=== PATIENT | male | born 1980 | race African-American/Black ===

== ENCOUNTER 2022-06-09 18:58 | Emergency (ER) | payer OTHER, SELFPAY ==
--- NOTE | ~2022-06-09 | XR_ITS ---
EXAMINATION: XR ankle LT min 3V, XR foot LT 2V CLINICAL INFORMATION: Reason for Exam posterior ankle pain COMPARISON: None. TECHNIQUE: Three views of the foot and 2 views of the ankle FINDINGS: No acute fracture or dislocation. Suspect subtle periarticular erosion along the medial aspect of the base of the first proximal phalanx with some overlying soft tissue swelling. Mild degenerative changes of the foot and ankle with Achilles tendon enthesopathy and degenerative spurring of the tibiotalar joint and dorsal midfoot. No tibiotalar talar joint effusion. XR/XR foot LT 2V IMPRESSION: 1. No acute fracture or dislocation. 2. Suspect subtle periarticular erosion along the medial aspect of the base of the first proximal phalanx with some overlying soft tissue swelling, which can be seen in the setting of gout if clinical history is appropriate. 3. Mild degenerative changes of the foot and ankle.
--- NOTE | ~2022-06-09 | XR_ITS ---
EXAMINATION: XR ankle LT min 3V, XR foot LT 2V CLINICAL INFORMATION: Reason for Exam posterior ankle pain COMPARISON: None. TECHNIQUE: Three views of the foot and 2 views of the ankle FINDINGS: No acute fracture or dislocation. Suspect subtle periarticular erosion along the medial aspect of the base of the first proximal phalanx with some overlying soft tissue swelling. Mild degenerative changes of the foot and ankle with Achilles tendon enthesopathy and degenerative spurring of the tibiotalar joint and dorsal midfoot. No tibiotalar talar joint effusion. XR/XR ankle LT min 3V IMPRESSION: 1. No acute fracture or dislocation. 2. Suspect subtle periarticular erosion along the medial aspect of the base of the first proximal phalanx with some overlying soft tissue swelling, which can be seen in the setting of gout if clinical history is appropriate. 3. Mild degenerative changes of the foot and ankle.
--- NOTE | ~2022-06-09 | US_ITS ---
EXAMINATION: ULTRASOUND ACHILLES TENDON, LEFT CLINICAL INFORMATION: Plain basketball and felt a pop in left ankle COMPARISON: None TECHNIQUE: High-frequency linear ultrasound transducer was used to examine the region of the left Achilles tendon. FINDINGS: Approximately 10 cm from the calcaneus, there is evidence of an Achilles tendon rupture with disruption of the tendon and a heterogeneous fluid collection. US/US extremity nonvascular IMPRESSION: Evidence of Achilles tendon rupture.
[2022-06-09 19:11] VITALS: BP 123/75; BP 123/82; PULSE 59; PULSE 64; RESP 15; TEMP 36.9; O2SAT 100; O2SAT 99; BMI 26.8
[2022-06-09 19:20] VITALS: BP 123/75; PULSE 59; RESP 15; TEMP 36.9; O2SAT 99
--- NOTE | 2022-06-09 19:27 | ED.LOWEXIN ---
HPI - Extremity Injury (Lower) General Chief Complaint: Extremity Injury, Lower Stated Complaint: felt pop in ankle Time Seen by Provider: 06/09/22 19:07 Source: patient Mode of arrival: ambulatory Limitations: no limitations History of Present Illness HPI Narrative: 42 yold male presents to the ED for left posterior ankle pain. patient states he was going for a layup and he felt a pop in his posterior ankle and he states fell to the ground. patient states he was informed no one pushed him to the ground. patient states not able to bear weight on foot. patient denies hitting head or loss of consciousness. Related Data Previous Rx's Medication Instructions Recorded naproxen 500 mg tablet 500 mg PO BID PRN pain 10 days #20 06/09/22 tabs oxycodone 5 mg tablet 5 mg PO TID PRN pain 3 days #9 tabs 06/09/22 Allergies Allergy/AdvReac Type Severity Reaction Status Date / Time No Known Allergies Allergy Verified 06/09/22 19:15 Review of Systems Review of Systems: left posteiror ankle pain Yes all other systems are reviewed and are negative [facility] Past Medical History Medical History (Updated 06/09/22 @ 22:39 by ZOHRA Ledbetter) ACL tear Social History Social History Smoked in Last 30 Days: No Use of substances other than those prescribed or required for medical reasons: No Advance Directives: Yes Advance Directives Information Provided: No Advance Directives on File: No Physical Exam Vital Signs: Vital Signs: Last Vital Signs Temp 98.4 F 06/09/22 19:20 Pulse 59 06/09/22 19:20 Resp 15 06/09/22 19:20 BP 123/75 06/09/22 19:20 Pulse Ox 99 06/09/22 19:20 O2 Del Method 06/09/22 19:20 BMI result Body Mass Index 26.8 Const: General: cooperative, healthy appearing, comfortable, no acute distress, well developed, alert, awake and Physically active Orientation/consciousness: oriented to person, oriented to place, oriented to time and patient oriented x3 HEENT: Head: Yes normal to inspection, Yes No palpable skull fracture present, Yes normocephalic, Yes atraumatic and No abrasion Eyes: General: appearance normal, both eyes and all related structures Neck: Neck: Yes normal visual inspection, Yes full ROM, Yes no lymphadenopathy, Yes no meningeal signs, Yes trachea midline, Yes supple, No anterior neck swelling and No tender Chest: Chest palpation & inspection: normal inspection of the chest and normal palpation of entire chest wall Resp: Effort & Inspection: normal respiratory effort and able to speak in complete sentences Auscultation: clear to auscultation bilaterally Cardio: Jugular venous distension: no JVD Heart sounds: S1 normal heart sound present and S2 normal heart sound present GI: Inspection: Yes normal to inspection and No abdominal wall ecchymosis Palpation (GI): Soft to palpation, not firm, nontender, no guarding and not rigid : General: No CVA tenderness and Yes no CVA tenderness Back/Spine/Pelvis: Back: no CVA tenderness, No CVA tenderness and No back tenderness Skin: General skin exam: no rashes or lesions noted and elasticity normal Neuro: General: oriented to person, oriented to place, oriented to time, patient oriented x3, tone normal, Normal light touch and pain sensation, no meningeal signs and CN's II-XI intact bilaterally Extrem: General: Yes normal to inspection and Yes full ROM Ankle/foot/toe images: 1. Positive for tenderness on palpation. Positive Guallpa test. Neuro/vascular exam intact. Motor exam limited due to pain Psych: Appearance: grossly normal, well kempt and not disheveled Course Course Course Narrative: administrative support technician was called to order MRI to check for his rupture and calf rupture. They spoke with Dr. Diaz and states not able to do the procedure. Will order x-ray and lower extremity ultrasound to check for calf rupture. Reevaluation(s) Reevaluation #1: Ultrasound shows Achilles tendon rupure. Patient placed in posterior splint and told to follow up with orthopedic surgeon Time: 22:37 Medications Administered Discontinued Medications Generic Name Dose Route Start Last Admin Trade Name Jacobq PRN Reason Stop Dose Admin Ibuprofen 800 mg 06/09/22 22:04 06/09/22 22:22 Ibuprofen 800 Mg Tablet PO 06/09/22 22:05 800 mg ONCE ONE Administration MDM - Extremity Injury (Lower) MDM Narrative Medical decision making narrative: Achilles tendon rupture Discharge Plan Discharge Clinical Impression: Achilles tendon rupture Patient Disposition: Home, Self-Care Instructions: Crutch Instructions (ED), Achilles Tendon Rupture (ED), Splint Care (ED), R.I.C.E. Treatment (ED) Additional Instructions: You will need follow-up with orthopedic surgeon. He will be discharged with pain medication. Do not recommend he return to work having or resuming sports activities. Return to the ED for worsening pain, bluish black discoloration of toes, redness, chest pain, shortness of breath, or any other concerning symptoms. Prescriptions: New naproxen 500 mg tablet 500 mg PO BID PRN (Reason: pain) 10 Days Qty: 20 0RF oxycodone 5 mg tablet 5 mg PO TID PRN (Reason: pain) 3 Days Qty: 9 0RF Rx Instructions: Partial Fill upon patient request. side effect is drowsiness. Do not take at work or while driving. [place]: [facility] [place] [facility] [place] Group] (Achilles tendon rupture) Stand Alone Forms: Work/School Release Interventions: ED Discharge Assessment Last Done: 06/09/22 22:50 Discharge Date/Time: 06/09/22 22:50 Print Language: Lithuanian
--- OUTSIDE RECORDS SUMMARY | 2022-06-09 20:22 | XMS_ITS | Continuity of Care Document ---
:1980 Author Organization [facility] Care Team Providers Name Role Phone [facility] Unavailable Unavailable Allergies, Adverse Reactions, Alerts Combined list of allergies from Department of Defense and Veterans Affairs facilities. It does not include entries that were removed or entered in error. Substance Category Reaction Severity Reaction Status Date Comments S ource type Reported No Known Drug Drug active DARIN Sa n Allergies allergy allergy 9 [facility] [place] [address] Immunizations Combined list of available immunizations from the Department of Defense and Veterans Affairs facilities. Immunization Series Date Administered Site Reaction Lot CVX Drug St atus Comments Source Given By Number Code Crtt Influenza, 1 08/06/ BO03425 150 Seqirus (SEQ) comp let Influenza DoD injectable, 2018 ed , quadrivalent, inject abl preservative e, free quadrival ent, preservat danyell free Encounters Combined list of: 1) Encounters from Department of Veterans Affairs facilities going back up to the last 18 months. 2) Encounters from the Department of Defense facilities going back up to 280 months. Location Location Encounter Encounter Reason Attending ADM [place] Stat us Disposition Source Details Type Number For Provider Date Date Visit OUTPATIENT [id number] MICHELLE, 10/16 Release d w/o DARIN Fontanez 4 BRILYN MIRNA [place]itations [place] [address]([facility], BMT) OUTPATIENT [id number] Notes STEPHON, 10/17 Release d w/o DARIN Fontanez 1 Entered JOCELINE Limitations Daljit io by: FERNANDO SZYMANSKI y ,JOCELINE Treatme FERNANDO nt [place], [place] [address](T ------- rainee ------- Health ------- [place], ------- [place] -- d) Strep Prophyl axsis OUTPATIENT [id number] Notes PARMJIT, 10/30 Released w/o DARIN Fontanez 7 Entered EUISUN NMN Limitations A ntonio by: Kathia Márquez Treatme Oct 2019 Facilit [address], [place] ------- [address](T ------- rainee ------- Health ------- Ryan, -- [place] [facility] [place] -DX 1. Cervica lgia Neck Pain DX 2. Muscle Spas Neck--F /U THS OUTPATIENT [id number] Initial CITLALI, 10/31 Release d w/o DARIN Fontanez 6 BMT TB JOYCE /2019 Limitations Ant [place] [address](O ccupati onal Med, Ryan) OUTPATIENT [id number] Margaret KAUFMANKARINA, 12/14 Release d w/o 81st 1 Waiver NICHOL Limitations Id dical Group[facility] Procedures Combined list of: 1) Procedures from Department of Veterans Affairs facilities going back up to the last 18 months, not all VA non-surgical procedures are included; 2) All procedures from the Department of Defense facilities. Procedure Procedure Type Code Date Perfomer Comments [facility] e Physician Physician 18880 Flex SZYMANSKI Supervised Supervised 9 JOCELINE FERNANDO Injection Injection Intramuscular Intramuscular Threshold Audiogram Threshold Audiogram 54640 Flex MARTINEZ (Pure Tone) (Pure Tone) 9 BRILYN MIRNA INJECTION, [facility] KETOROLAC 9 TROMETHAMINE, PER 15 MG THERAPEUTIC, DoD PROPHYLACTIC, OR 9 DIAGNOSTIC INJECTION (SPECIFY SUBSTANCE OR DRUG); SUBCUTANEOUS OR INTRAMUSCULAR PURE TONE [facility] AUDIOMETRY 9 (THRESHOLD); AIR ONLY Social History Combined list of available smoking, tobacco, and other social history from Department of Defense andVeterans Affairs facilities. Social History Type Response Date Comment Source This section is an empty social history section. DoD
--- NOTE | 2022-06-09 22:01 | PC.NURSE ---
Splint being applied at this time by provider Adam,PCT.
--- NOTE | 2022-06-09 22:06 | PC.NURSE ---
ZOHRA Ayala and I placed a posterior short splint to the pt left leg.
[2022-06-09] MEDS: Ibuprofen 800 MG TABLET PO (22:22)
--- NOTE | 2022-06-09 22:24 | PC.NURSE ---
Administered ibuprofen 800 mg per MAR.
== END 2022-06-09 22:50 | disposition home or self-care (01) ==
PROVIDERS: Emergency Provider Internal Medicine
DX: S86.012A Strain of left Achilles tendon, initial encounter (principal); X50.1XXA Overexertion from prolonged static or awkward postures, initial encounter; Y93.67 Activity, basketball; Y92.310 Basketball court as the place of occurrence of the external cause; Y99.9 Unspecified external cause status
CPT/HCPCS: 29515; 73610; 73620; 76882; 99284

== ENCOUNTER 2024-02-18 20:03 | Emergency (ER) | payer OTHER, SELFPAY ==
--- NOTE | 2024-02-18 | ECG_ITS ---
Test Reason : chest pain Blood Pressure : / mmHG Vent. Rate : 053 BPM Atrial Rate : 053 BPM P-R Int : 252 ms QRS Dur : 086 ms QT Int : 416 ms P-R-T Axes : 075 048 028 degrees QTc Int : 390 ms Sinus bradycardia with 1st degree A-V block Otherwise normal ECG No previous ECGs available Referred By: Generic ED Physician Electronically Signed By:MARIANNA SUE
--- NOTE | ~2024-02-18 | XR_ITS ---
EXAMINATION: XR CHEST, 2 VIEWS CLINICAL INFORMATION: Chest pain COMPARISON: None. TECHNIQUE: PA and lateral views of the chest were obtained. FINDINGS: Lungs are clear. No consolidation, pneumothorax, or pleural effusion. Cardiac and mediastinal contours are normal. Pulmonary vasculature is unremarkable. Trachea is midline. Osseous structures are unremarkable. XR/XR chest 2V IMPRESSION: Normal chest radiographs.
[2024-02-18 20:15] VITALS: BP 118/72; PULSE 55; RESP 16; TEMP 36.8; O2SAT 97; BMI 25.8
[2024-02-18 20:19] LABS: MANUAL DIFF FLAG NO
[2024-02-18 20:20] LABS: Basophils Percent Auto 0.6 % (0-2); Eosinophils Absolute Auto 0.3 X10*3/uL (0.0-0.4); Eosinophils Percent Auto 6.6 % (0-4); Hematocrit 37.2 % (42.0-52.0); Hemoglobin 13.2 g/dl (14.0-18.0); Lymphocytes Absolute Auto 1.8 X10*3/uL (1.2-4.9); Lymphocytes Percent Auto 36.7 % (20-40); Mean Corpuscular HGB Conc 35.5 g/dl (31.0-36.0); Mean Corpuscular Hemoglobin 31.2 pg (27.0-33.0); Mean Corpuscular Volume 87.9 fL (80.0-98.0); Mean Platelet Volume 8.9 fL (9.4-12.4); Monocytes Absolute Auto 0.5 X10*3/uL (0.1-1.2); Neutrophils Absolute Auto 2.4 x10*3/uL (2.0-8.3); Neutrophils Percent Auto 47.1 % (45-73); Platelet Count 219 X10*3/uL (160-400); Red Blood Count 4.23 X10*6/uL (4.60-5.80)
[2024-02-18 20:34] LABS: Alanine Aminotransferase 19 U/L (0-40); Albumin Level 4.1 g/dL (3.5-5.0); Alkaline Phosphatase 43 U/L (39-117); Anion Gap 13 (12-20); Aspartate Amino Transferase 15 U/L (5-37); Bilirubin Total 0.5 mg/dL (0.0-1.0); Blood Urea Nitrogen 25 mg/dL (9-16); Calcium 9.2 mg/dL (8.4-10.2); Carbon Dioxide 23 mmol/L (22-29); Chloride 110 mmol/L (96-108); Creatinine Clr Calc Pharmacy 87.8; Estimated Glomerular Filt Rate > 60; Glucose Random 92 mg/dL (60-115); Potassium 3.9 mmol/L (3.3-5.1); Sodium 142 mmol/L (135-145); Total Protein 6.3 g/dL (6.5-8.0)
[2024-02-18 20:41] LABS: Troponin-I High Sensitivity 7.1 ng/L (<3.5-35.0)
--- NOTE | 2024-02-18 21:01 | ED_ITS ---
HPI - Chest Pain General Chief Complaint: Chest Pain Stated Complaint: chest pain Time Seen by Provider: 02/18/24 21:01 Source: patient Mode of arrival: ambulatory Limitations: no limitations History of Present Illness ED Provider: Dr. David Vasquez HPI narrative: 43-year-old male with no significant past medical history presents emergency department for evaluation of chest pain. Patient states that around 15:00 hours he was working out at the gym lifting weights when he developed left-sided chest pain. He points to his left anterior chest when asked to localize the pain. He states the pain is a sharp, pressure-like pain which lasted about 4 hours and resolved at around 19:00 hours. He had no associated symptoms such as diaphoresis, lightheadedness, dizziness, shortness of breath, nausea, vomiting, radiation of the pain to his neck, jaw, arms or back. 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 This is the patient's 1st episode of this type of pain. The patient states that he runs 15-20 miles per week and has no difficulty completing his usual running routine. He states that he was in a 3 year relationship which broke up 2 weeks ago. Since that time he has been feeling sad and has been having difficulty sleeping. His father is 73 years old and has not had a heart attack but does have a history of hypertension. He states that his mother at an early age secondary to poisoning. Related Data Previous Rx's ?Medication ?Instructions ?Recorded naproxen 500 mg tablet 500 mg PO BID PRN pain 10 days #20 06/09/22 tabs oxycodone 5 mg tablet 5 mg PO TID PRN pain 3 days #9 tabs 06/09/22 Allergies Allergy/AdvReac Type Severity Reaction Status Date / Time No Known Allergies Allergy Verified 02/18/24 20:16 Review of Systems 2 Review of Systems: Yes all other systems are reviewed and are negative [facility] Past Medical History [facility] Narrative: Social history: He denies tobacco use. He states he drinks about 6 beers per month. He denies drug use. Patient works in finance. Medical History (Updated 02/18/24 @ 23:42 by David Vasquez MD) ACL tear Social History Social History Smoked in Last 30 Days: No Advance Directives: No Advance Directives Information Provided: No Do you have a plan to hurt others: No Plan Physical Exam 2 Vital Signs: Vital Signs: Last Vital Signs Temp 98.3 F 02/18/24 23:19 Pulse 52 02/18/24 23:19 Resp 16 02/18/24 23:19 BP 106/67 02/18/24 23:19 Pulse Ox 98 02/18/24 23:19 O2 Del Method Room Air 02/18/24 23:19 BMI result Body Mass Index 25.8 Vital signs were normal Exam: General: Awake, alert in no distress Head: Normocephalic, atraumatic EENT: PERRL, Lids normal, sclera normal, conjunctiva normal, nose normal , ears normal, throat without erythema or exudates Neck: Supple, no adenopathy Lung: breath sounds symmetric, no wheezing, rales or rhonchi Chest: symmetric movement, nontender Heart: regular rate and rhythm, normal S1, S2 no murmurs or rubs Abdomen: soft, non-tender, nondistended, normal bowel sounds Back: no vertebral tenderness, no CVAT Extremities: no deformities, moves all extremities symmetrically Neuro: Awake, alert, oriented, normal speech, cranial nerves intact, moves all extremities symmetrically Psych: Pleasant, cooperative Medical Decision Making Medical Decision Making MDM Narrative: 43-year-old male with no significant past medical history who presents emergency department for evaluation 4 hours of chest pain that started while he was lifting weights in the gym. This is 1st episode of this type of pain. Pain was located in his left anterior chest with no concerning associated symptoms. Vital signs were normal. Physical examination was unremarkable. Differential diagnosis: ?Includes but is not limited to myocardial infarction, myocardial ischemia, takotsubo cardiomyopathy, costochondritis, chest wall pain, anemia, electrolyte abnormalities Following evaluation was ordered: CBC, CMP,, troponin x2, EKG, chest x-ray two view, cardiac monitoring, O2 saturation monitor. Course: 22:15 My interpretation of the patient's laboratory evaluation as follows: CBC was normal. CMP was normal. High sensitive troponin I was detectable but not elevated at 7.1. Twelve EKG revealed a sinus bradycardia with a first-degree AV block with no significant abnormalities. Chest x-ray was normal. The patient's 1st troponin was detectable but not elevated but given his 4 hours of symptoms, I ordered a repeat 3 hour troponin at 23:14 hours. Patient was currently pain-free and will be kept on the paper control clerk and pulse oximetry monitor. 23:40 The patient's repeat troponin was 9 which is reassuring. I did discuss this with the patient. This time I suspect the patient's chest pain is musculoskeletal and not related to coronary disease or takotsubo cardiomyopathy. Patient was given printed and verbal instructions and discharged home. Admission/Observation Consideration of admission/observation: Escalation of care including admission/observation considered Lab Data MDM Lab Attestation statement: I reviewed the patient's lab results. 02/18/24 20:14 02/18/24 20:14 Labs: Lab Results 02/18/24 02/18/24 Range/Units 20:14 22:58 WBC 5.0 (4.8-10.8) X10*3/uL RBC 4.23 L (4.60-5.80) X10*6/uL Hgb 13.2 L (14.0-18.0) g/dl Hct 37.2 L (42.0-52.0) % MCV 87.9 (80.0-98.0) fL MCH 31.2 (27.0-33.0) pg MCHC 35.5 (31.0-36.0) g/dl RDW 12.0 (11.0-16.0) % Plt Count 219 (160-400) X10*3/uL MPV 8.9 L (9.4-12.4) fL Immature Gran % (Auto) 0.0 (0.0-0.4) % Neut % (Auto) 47.1 (45-73) % Lymph % (Auto) 36.7 (20-40) % [place] % (Auto) 9.0 (2-11) % Eos % (Auto) 6.6 H (0-4) % Baso % (Auto) 0.6 (0-2) % Lymph # (Auto) 1.8 (1.2-4.9) X10*3/uL [place] # (Auto) 0.5 (0.1-1.2) X10*3/uL Eos # (Auto) 0.3 (0.0-0.4) X10*3/uL Baso # (Auto) 0.0 (0.0-0.2) X10*3/uL Abs Immat Gran (auto) 0.00 (0.00-0.03) X10*3/uL Absolute Neuts (auto) 2.4 (2.0-8.3) x10*3/uL Absolute Nucleated RBC 0.000 (0.0-0.012) X10*3/uL Nucleated RBC % (auto) 0.0 (0.0-0.2) /100WBC Sodium 142 (135-145) mmol/L Potassium 3.9 (3.3-5.1) mmol/L Chloride 110 H (96-108) mmol/L Carbon Dioxide 23 (22-29) mmol/L Anion Gap 13 (12-20) BUN 25 H (9-16) mg/dL Creatinine 1.19 (0.5-1.4) mg/dL Estim Creat Clear Calc 87.8 Estimated GFR > 60 Random Glucose 92 (60-115) mg/dL Calcium 9.2 (8.4-10.2) mg/dL Total Bilirubin 0.5 (0.0-1.0) mg/dL AST 15 (5-37) U/L ALT 19 (0-40) U/L Alkaline Phosphatase 43 (39-117) U/L Troponin I High Sens 7.1 9.1 (<3.5-35.0) ng/L Total Protein 6.3 L (6.5-8.0) g/dL Albumin 4.1 (3.5-5.0) g/dL Independent Interpretation I performed an independent interpretation of an: EKG and Plain X-Ray Interpretation: My independent interpretation patient's two view chest x-ray is as follows: No acute disease My independent interpretation patient's 12 EKG done at 20:04 hours is as follows: Sinus bradycardia rate of 53, first-degree AV block with a VT interval 252 milliseconds, normal QRS duration and QTC interval. No ST segment elevation, no ST segment depression, J-point elevation V 4 through V 6, no significant T-wave abnormalities, no PACs, no PVCs Radiology Impression Discussion of test interpretation with radiology: I have reviewed the radiologist's reading. Radiologist Impression: XR chest 2V IMPRESSION: Normal chest radiographs. Dictated By: Tashi Jones MD Discharge Plan Discharge Clinical Impression: Chest pain Patient Disposition: Home, Self-Care Instructions: Chest Pain (ED) Additional Instructions: Your chest x-ray was normal with no findings to explain your pain. Your EKG did not reveal any evidence for heart attack but you do have a first- degree AV block. This is not related to your chest pain. You should follow-up with your primary care doctor to discuss this EKG finding. Often in the treatment is to follow an EKG every 1-2 years to make sure that the AV block is not getting worse or that you are not developing any other conduction problems. Your high sensitive troponin I was initially detectable but not elevated at 7. Repeat was 9. Less than 30 and med is normal. This is reassuring and suggests that you did not have any heart attack/heart damage as the cause of your pain. Your pain is most likely caused by muscle pain of your chest muscles. Take ibuprofen 200 mg pills, 2 pills every 6 hours as needed for pain or fever. Take Tylenol (acetaminophen) 500 mg pills, 2 pills every 6 hours as needed for pain or fever. Follow-up with your doctor in 2 days. Please return to the emergency department if your symptoms get worse or if you develop any symptoms that are concerning to you. Prescriptions: No Action naproxen 500 mg tablet 500 mg PO BID PRN (Reason: pain) 10 Days Qty: 20 0RF oxycodone 5 mg tablet 5 mg PO TID PRN (Reason: pain) 3 Days Qty: 9 0RF Rx Instructions: Partial Fill upon patient request. side effect is drowsiness. Do not take at work or while driving. Print Language: Korean
[2024-02-18 21:43] VITALS: BP 111/68; PULSE 55; RESP 15; TEMP 37.1; O2SAT 97
[2024-02-18 23:19] VITALS: BP 106/67; PULSE 52; RESP 16; TEMP 36.8; O2SAT 98
[2024-02-18 23:22] LABS: Troponin-I High Sensitivity 9.1 ng/L (<3.5-35.0)
[2024-02-18 23:54] VITALS: BP 106/67; PULSE 52; RESP 16; TEMP 36.8; O2SAT 98
== END 2024-02-18 23:55 | disposition home or self-care (01) ==
PROVIDERS: Emergency Provider Emergency Medicine Emergency Medical Services
DX: R07.9 Chest pain, unspecified (principal); R00.1 Bradycardia, unspecified; I44.0 Atrioventricular block, first degree
CPT/HCPCS: 36415; 71046; 80053; 84484; 85025; 93005; 99284

== ENCOUNTER → 2024-02-18 20:04 | Outpatient (BNV) | payer OTHER, SELFPAY | PROVIDERS: Emergency Provider Emergency Medicine Emergency Medical Services; Visit Provider Internal Medicine | DX: I44.0 Atrioventricular block, first degree (principal) | CPT/HCPCS: 93010 ==